=== PATIENT | female | born 1945 | race Caucasian/White ===

== ENCOUNTER → 2016-11-25 | Outpatient (CLI) | payer MEDICARE, OTHER ==
--- NOTE | 2016-11-25 10:33 | MRI ---
Study: MRI of the Right Shoulder. Indication: SHOULDER PAIN Technique: Multiplanar, multi sequence MRI of the right shoulder was obtained without intravenous contrast. Comparison: None. Findings: Mild to moderate AC joint osteoarthritis. Mild type II acromion with minimal lateral downsloping. Small volume subacromial/subdeltoid bursal fluid. Supraspinatus and infraspinatus tendinosis. High grade interstitial, effectively full-thickness tearing anterior two thirds supraspinatus tendon insertion with the tear defect measuring 13 mm AP by 8 mm transverse. Additional articular sided fraying throughout the critical zone of both tendons with several low-grade foci of interstitial fissuring of the infraspinatus tendon insertion. No tendon retraction. Subscapularis tendinosis and low-grade attenuation without full-thickness tear. Teres minor tendon intact. Grade 1 fatty infiltration rotator cuff musculature without atrophy or intramuscular edema. Long head biceps tendon intact. Circumferential labral truncation/degeneration. Mild glenohumeral joint osteoarthritis with a tiny joint effusion. No acute fracture or osseous contusion. Impression: Supraspinatus and infraspinatus tendinosis with high-grade interstitial, likely full-thickness tearing anterior supraspinatus tendon insertion as above. Subscapularis tendinosis and low-grade attenuation. Grade 1 fatty infiltration rotator cuff musculature. Circumferential labral truncation/degeneration. Mild glenohumeral joint osteoarthritis. Mild to moderate AC joint osteoarthritis. Electronically signed by: Bhanu Donahue MD 11/25/2016 10:32 AM [employer]
== END | disposition home or self-care (01) ==
LOC: MRI 08:52
PROVIDERS: ATTEND Family Medicine
DX: M75.31 Calcific tendinitis of right shoulder (principal)

== ENCOUNTER → 2017-01-25 | Outpatient (CLI) | payer MEDICARE, OTHER ==
--- NOTE | 2017-01-25 10:12 | RAD ---
PROCEDURE: Chest,2 Views CLINICAL HISTORY: ACUTE UPPER RESP INFECTION INDICATION: Same as above COMPARISON: 08/15/2014 TECHNIQUE: PA and and lateral chest radiographs were obtained. FINDINGS: Mild chronic prominence of the interstitium is seen in the bilateral lung saldaña . Note is made of old healed fractures involving the left seventh and eighth ribs There are no discrete airspace infiltrates, pneumothoraces or pleural effusions. The pulmonary vascularity is normal The cardiomediastinal silhouette is unremarkable for patient's age and sex. IMPRESSION: There is no acute pleural-parenchymal process seen in the imaged lung saldaña. Place of interpretation: Teleradiology. Electronically signed by: Jayson Grande MD 01/25/2017 10:11 AM CDT
== END | disposition home or self-care (01) ==
LOC: RAD 09:47
PROVIDERS: ATTEND Nurse Practitioner Family
DX: J06.9 Acute upper respiratory infection, unspecified (principal)